=== PATIENT | female | born 1990 | race Caucasian/White ===

== ENCOUNTER → 2016-12-31 | Outpatient (CLI) | payer BC, MEDICAID, OTHER ==
[2016-12-31 12:04] LABS: BASO % 0.2 % (0.0-1.0); EOS # 0.1 K/mm3 (0.0-0.50); EOS % 1.7 % (0.0-3.0); LARGE UNSTAINED CELL # 0.1 K/mm3 (0.0-0.4); LARGE UNSTAINED CELL % 1.2 % (0.0-4.0); LYMPH # 2.1 K/mm3 (1.5-6.5); LYMPH % 27.4 % (24.0-44.0); MEAN CORPUSCULAR HEMOGLOBIN 30.5 pg (27.0-33.0); MEAN CORPUSCULAR HGB CONC 33.1 g/dl (32.0-36.5); MEAN CORPUSCULAR VOLUME 92.1 fl (80.0-96.0); MONO # 0.6 K/mm3 (0.0-0.8); MONO % 7.4 % (0.0-5.0); NEUTROPHILS # 4.6 K/mm3 (1.8-7.7); NEUTROPHILS % 62.1 % (36.0-66.0); PLATELET COUNT, AUTOMATED 259 k/mm3 (150-450); RED CELL DISTRIBUTION WIDTH 14.2 % (11.5-14.5); WHITE BLOOD COUNT 7.4 K/mm3 (4.0-10.0)
[2016-12-31 12:51] LABS: HBsAg Prenatal NEGATIVE (NEGATIVE)
[2016-12-31 13:19] LABS: HIV SCREEN CENTAUR NEGATIVE (NEGATIVE)
== END ==
LOC: M LAB 11:17
PROVIDERS: ATTEND Advanced Practice Midwife
DX: Z34.81 Encounter for supervision of other normal pregnancy, first trimester (principal); Z36 Encounter for antenatal screening of mother; Z3A.00 Weeks of gestation of pregnancy not specified

== ENCOUNTER → 2017-03-02 | Outpatient (CLI) | payer MEDICAID, OTHER ==
[2017-03-02 12:19] LABS: BASO % 0.2 % (0.0-1.0); EOS # 0.1 K/mm3 (0.0-0.50); EOS % 1.2 % (0.0-3.0); LARGE UNSTAINED CELL # 0.1 K/mm3 (0.0-0.4); LARGE UNSTAINED CELL % 1.4 % (0.0-4.0); LYMPH # 1.7 K/mm3 (1.5-6.5); LYMPH % 20.6 % (24.0-44.0); MEAN CORPUSCULAR HEMOGLOBIN 32.2 pg (27.0-33.0); MEAN CORPUSCULAR HGB CONC 34.7 g/dl (32.0-36.5); MEAN CORPUSCULAR VOLUME 92.7 fl (80.0-96.0); MONO # 0.5 K/mm3 (0.0-0.8); MONO % 5.7 % (0.0-5.0); NEUTROPHILS # 5.8 K/mm3 (1.8-7.7); NEUTROPHILS % 70.8 % (36.0-66.0); PLATELET COUNT, AUTOMATED 244 k/mm3 (150-450); RED CELL DISTRIBUTION WIDTH 13.3 % (11.5-14.5)
--- NOTE | 2017-03-02 12:56 | REP ---
OB ULTRASOUND: Real-time sonographic evaluation of the gravid uterus performed utilizing transabdominal technique. There is a single living intrauterine gestation. Estimated gestational age 16 weeks 1 day, EDC 08/16/2017. Today's measurements indicate appropriate growth. BPD 33 mm = 16 weeks 2 days, 59th percentile HC 118 mm = 15 weeks 6 days, 39th percentile AC 108 mm = 16 weeks 5 days, 65th percentile Femur length 19 mm = 15 weeks 4 days, 34th percentile HC/AC ratio 1.09 lower limits of normal range 1.09-1.28. Estimated weight 146 grams, 45th percentile. Cervix is closed and measures 3.7 cm in length. heart rate 137 beats per minute. position is breech. Placenta is posterior and fundal and grade 0 with no previa or abruption. Amniotic fluid appears within normal limits. No maternal adnexal region abnormality is seen. Ovaries appear normal in size and echotexture with no torsion. Blood flow is seen in each ovary with duplex Doppler evaluation. Attempts were made to visualize the appendix in the right lower quadrant, but the appendix could not be visualized. No free fluid is seen. Right kidney shows no hydronephrosis. Signed by Rc Chun MD 03/03/2017 07:04 P
[2017-03-03 09:59] LABS: WHITE BLOOD COUNT 8.2 K/mm3 (4.0-10.0)
== END ==
LOC: M LAB 11:18
PROVIDERS: ATTEND Advanced Practice Midwife
DX: R10.31 Right lower quadrant pain (principal)

== ENCOUNTER → 2017-03-15 | Outpatient (CLI) | payer OTHER ==
--- NOTE | 2017-03-16 07:13 | REP ---
Clinical: Anatomical evaluation. Comparison: 03/02/2017 . Findings: Examination demonstrates a single live intrauterine in cephalic presentation. motion is identified by technologist. Placenta is noted posterior fundally and grade zero without evidence for placenta previa or abruption. Amniotic fluid volume is normal. Cervix measures 3.2 cm in length and appears closed. No evidence for nuchal cord. Gestational age by LMP 18 weeks 0 days with MICHAEL 08/16/2017 . Gestational age by current measurements 17 weeks 5 days with MICHAEL 08/18/2017 . FHR equals 132 beats per minute. Estimated weight 205 grams ( 35th percentile). Anatomical assessment demonstrates normal structures including cranium, choroid plexus, cavum, cerebellum/posterior fossa, facial features, lungs, four-chamber heart/ventricular outflow tracts, diaphragm, stomach, cord insertion/three-vessel cord, kidneys/bladder, spine, and extremities. Impression: 1. Single live intrauterine in cephalic presentation demonstrating appropriate interval growth. 2. Anatomical assessment is complete and normal. Signed by Dre Cobb MD 03/16/2017 07:05 A
== END ==
LOC: M RAD 12:53
PROVIDERS: ATTEND Advanced Practice Midwife
DX: Z34.82 Encounter for supervision of other normal pregnancy, second trimester (principal); Z36 Encounter for antenatal screening of mother; Z3A.17 17 weeks gestation of pregnancy

== ENCOUNTER → 2017-05-23 | Outpatient (CLI) | payer OTHER ==
[2017-05-23 14:24] LABS: MEAN CORPUSCULAR HEMOGLOBIN 32.2 pg (27.0-33.0); MEAN CORPUSCULAR HGB CONC 34.3 g/dl (32.0-36.5); RED CELL DISTRIBUTION WIDTH 13.5 % (11.5-14.5); WHITE BLOOD COUNT 9.3 K/mm3 (4.0-10.0)
== END ==
LOC: M LAB 12:13
PROVIDERS: ATTEND Advanced Practice Midwife
DX: Z34.82 Encounter for supervision of other normal pregnancy, second trimester (principal); Z36 Encounter for antenatal screening of mother; Z3A.00 Weeks of gestation of pregnancy not specified

== ENCOUNTER → 2018-01-30 | Outpatient (REF) | payer MEDICAID | LOC: M SFHCLERA 11:51 | DX: J02.9 Acute pharyngitis, unspecified (principal) ==

== ENCOUNTER → 2018-07-24 | Outpatient (REF) | payer OTHER, MEDICAID | LOC: M SFHCLERA 12:56 | DX: R30.0 Dysuria (principal) | CPT/HCPCS: 87086 ==

== ENCOUNTER → 2019-02-09 | Outpatient (REF) | payer MEDICAID, OTHER ==
[~2019-02-09] MED LIST: ALBU17IN2 INH; IBUP-1114 PO; MAPA500T2 PO; PRENTAB9 PO; RANI15TA PO; ZITHTAB PO
== END ==
LOC: M SFHCLERA 11:50
PROVIDERS: ATTEND Physician Assistant
DX: R30.0 Dysuria (principal); J02.9 Acute pharyngitis, unspecified

== ENCOUNTER 2022-06-08 19:00 | Emergency (ER) | payer MEDICAID, OTHER ==
[~2022-06-08] VITALS: Ht 157.5 cm; Wt 77.3 kg
[2022-06-08 19:00] VITALS: BP 111/65
[~2022-06-08 19:00] MED LIST changes: -ALBU17IN2 INH; +ALBU6.7H6 INH
== END 2022-06-08 22:38 | disposition left against medical advice (07) ==
LOC: M ED 19:00
DX: Z53.29 Procedure and treatment not carried out because of patient's decision for other reasons (principal)

== ENCOUNTER → 2022-09-15 | Outpatient (REF) | LOC: M LAB REF 09:11 | PROVIDERS: ATTEND Obstetrics & Gynecology Obstetrics | DX: Z79.899 Other long term (current) drug therapy (principal) ==

== ENCOUNTER → 2024-05-03 | Outpatient (REF) | payer OTHER | LOC: M LAB REF 15:22 | PROVIDERS: ATTEND Internal Medicine Endocrinology, Diabetes & Metabolism | DX: E04.1 Nontoxic single thyroid nodule (principal) ==

== ENCOUNTER 2025-10-02 13:09 | Emergency (ER) | payer OTHER ==
[~2025-10-02] VITALS: Ht 157.5 cm; Wt 87.2 kg
[~2025-10-02 13:09] MED LIST changes: +IBUP600T42 PO; +LEVO100T5 PO; +OXYC1TAB23 PO
[2025-10-02 13:23] VITALS: TEMP 98.1
[2025-10-02 14:22] LABS: BASO # 0.0 10^3/uL (0.0-0.2); BASO % 0.5 % (0.0-1.0); EOS # 0.2 10^3/uL (0.0-0.5); EOS % 1.9 % (0.0-3.0); LYMPH # 1.9 10^3/uL (1.5-5.0); LYMPH % 22.3 % (24.0-44.0); MONO # 0.7 10^3/uL (0.0-0.8); MONO % 8.7 % (2.0-8.0); NEUTROPHILS # 5.6 10^3/uL (1.5-8.5); NEUTROPHILS % 65.9 % (36.0-66.0); PLATELET COUNT, AUTOMATED 358 10^3/uL (150-450)
[2025-10-02] MEDS: NS (Normal Saline) 0.9% 1,000 ML IV ONE (14:41)
[2025-10-02 14:43] LABS: KETONE, URINE AUTO RFX NEGATIVE (NEGATIVE); LEUKOCYTE ESTERASE UR AUTO RFX NEGATIVE (NEGATIVE); NITRITE, URINE AUTO RFX NEGATIVE (NEGATIVE); RBC, URINE AUTO RFX 0 /HPF (0-3); SQUAM EPITHELIAL CELL UR AURFX 0 /HPF (0-6); WBC, URINE AUTO RFX 0 /HPF (0-3)
[2025-10-02 14:50] LABS: ALT/SGPT 24 U/L (7.0-40); AST/SGOT 13 U/L (<34); C REACTIVE PROTEIN QUANTITATIV 0.96 MG/DL (<1.0); CALCIUM LEVEL 9.0 MG/DL (8.5-10.1); CARBON DIOXIDE LEVEL 27 MMOL/L (20-31); CHLORIDE LEVEL 108 MMOL/L (98-107); CREATININE FOR GFR 0.62 MG/DL (0.55-1.30); GLOMERULAR FILTRATION RATE > 90.0 (>60); INR 0.99; POTASSIUM SERUM 4.6 MMOL/L (3.5-5.1); SODIUM LEVEL 142 MMOL/L (136-145)
[2025-10-02] MEDS ORDERED: ISOVUE-370 76% 100 ML VIAL As Ordered ONE (15:22)
[2025-10-02 15:45] LABS: MAGNESIUM LEVEL 2.0 MG/DL (1.8-2.4)
[2025-10-02 15:57] LABS: CK-MB VALUE MASS 5.4 NG/ML (<3.6)
[2025-10-02 16:00] LABS: CPK CREATINE PHOSPHOKINASE 148 U/L (34-145); MB/CK RELATIVE INDEX 3.64 (< OR =4)
[2025-10-02 16:25] LABS: CK-MB VALUE MASS 5.0 NG/ML (<3.6)
[2025-10-02 16:39] LABS: CPK CREATINE PHOSPHOKINASE 142.0 U/L (34-145); MB/CK RELATIVE INDEX 3.52 (< OR =4)
[2025-10-02 16:46] VITALS: O2SAT 97
[2025-10-02 16:54] VITALS: BP 166/86
[2025-10-02] MEDS: KETOROLAC 30 MG/ML 1 ML VIAL IV ONE (17:03)
[2025-10-02] MEDS: ASPIRIN 81 MG CHEWABLE TABLET PO ONE (17:03)
[2025-10-02] MEDS ORDERED: CALCIUM GLUCONATE 1,000 MG in DEXTROSE 5% (D5W) MINI-BAG PLU 100 ML IV PRN (17:20)
[2025-10-02] MEDS ORDERED: MAG Sulf (L&D) 4 GM/100 ML 4 GM in IV 1 EA IV ONE (17:30)
[2025-10-02] MEDS ORDERED: VITA500038 PO (17:52)
[2025-10-02] MEDS ORDERED: NICO14DI6 TOP (17:52)
[2025-10-02] MEDS ORDERED: PERCOCET PO (17:52)
[2025-10-02] MEDS ORDERED: HYDR-3363 PO (17:52)
[2025-10-02] MEDS ORDERED: IBUP600T42 PO (17:52)
[2025-10-02] MEDS ORDERED: HOME MED LIST COMPLETE! XX SCH (17:55)
[2025-10-02] MEDS ORDERED: MAG Sulf (OBGYN) 20GM/500ML 20,000 MG in IV 1 EA IV SCH (18:00)
[2025-10-02 18:06] LABS: CK-MB VALUE MASS 4.8 NG/ML (<3.6)
[2025-10-02 18:10] LABS: CPK CREATINE PHOSPHOKINASE 147.0 U/L (34-145); MB/CK RELATIVE INDEX 3.26 (< OR =4)
== END 2025-10-02 17:47 | disposition admitted as inpatient to this hospital (09) ==
LOC: M ED 13:09 → UNDOADMIN 17:20 → M ED INP 17:20 → UNDODISIN 17:47
DX: O14.05 Mild to moderate pre-eclampsia, complicating the puerperium (principal); J06.9 Acute upper respiratory infection, unspecified; B34.8 Other viral infections of unspecified site; O98.53 Other viral diseases complicating the puerperium; O99.53 Diseases of the respiratory system complicating the puerperium; O99.335 Smoking (tobacco) complicating the puerperium; F17.210 Nicotine dependence, cigarettes, uncomplicated; O34.219 Maternal care for unspecified type scar from previous cesarean delivery; O99.285 Endocrine, nutritional and metabolic diseases complicating the puerperium; E03.9 Hypothyroidism, unspecified